=== PATIENT | female | born 1965 | race Caucasian/White ===

== ENCOUNTER 2023-05-13 18:08 | Emergency (ER) | payer BC ==
[~2023-05-13] VITALS: Ht 170.2 cm; Wt 104.3 kg
[2023-05-13] MEDS ORDERED: ONDANSETRON 4 MG/2 ML VIAL ONE ×2 (18:36→21:14)
[2023-05-13] MEDS ORDERED: HYDROMORPHONE 1 MG/1 ML DISP.SYRIN ONE ×2 (18:37→21:37)
[2023-05-13] MEDS: ONDANSETRON 4 MG/2 ML VIAL IV ONE ×2 (18:42→21:16)
[2023-05-13 18:45] LABS: WHITE BLOOD COUNT (AUTO) 10.2 K/uL (3.8-11.8)
[2023-05-13] MEDS: HYDROMORPHONE 1 MG/1 ML DISP.SYRIN IV ONE ×2 (18:45→21:42)
[2023-05-13 18:49] LABS: BASOPHILS # (AUTO) 0.1 K/UL (0.0-0.2); BASOPHILS % (AUTO) 0.8 % (0.0-2.0); DIFFERENTIAL COMMENT 1; EOSINOPHILS % (AUTO) 0.4 % (0.0-7.0); HEMOGLOBIN 14.5 g/dL (10.9-14.3); LYMPHOCYTES # (AUTO) 0.8 K/uL (0.8-4.8); LYMPHOCYTES % (AUTO) 8.3 % (20.5-51.5); MEAN CORPUSCULAR HEMOGLOBIN 31.8 uug (24.7-32.8); MEAN CORPUSCULAR HGB CONC 34 g/dL (32.3-35.6); MEAN CORPUSCULAR VOLUME 94.3 fL (75.5-95.3); MONOCYTES # (AUTO) 0.5 K/uL (0.1-1.30); NEUTROPHILS # (AUTO) 8.7 K/uL (1.8-8.9); NEUTROPHILS % (AUTO) 85.5 % (38.5-71.5); PLATELET COUNT (AUTO) 280 K/uL (179-408); RED BLOOD CELL COUNT(AUTO) 4.56 MIL/uL (3.63-4.92); RED CELL DISTRIBUTION WIDTH 12.8 % (12.3-17.7)
[2023-05-13 18:54] LABS: CALCIUM 9.4 mg/dL (8.5-10.1); CARBON DIOXIDE 22 mmol/L (21-32); CHLORIDE 102 mmol/L (98-107); CREATININE 0.7 mg/dL (0.6-1.3); GLUCOSE 269 mg/dL (74-106); SODIUM SERUM 139 mmol/L (136-145); UREA NITROGEN, BLOOD 12 mg/dL (7-18)
[2023-05-13 19:06] LABS: ALANINE AMINOTRANSFERASE 725 U/L (14-59); ALBUMIN 3.7 g/dL (3.4-5.0); ALKALINE PHOSPHATASE 182 U/L (50-136); ASPARTATE AMINOTRANSFERASE 417 U/L (15-37); BILIRUBIN,TOTAL 5.2 mg/dL (0.2-1.0); TOTAL PROTEIN, SERUM 7.1 g/dL (6.4-8.2)
[2023-05-13] MEDS ORDERED: IV NORMAL SALINE 250 ML IV ONE (19:32)
[2023-05-13] MEDS ORDERED: IOHEXOL 300MG/ML 100 ML INFUS..BTL ONE (19:32)
[2023-05-13] MEDS ORDERED: SWABABLE VALVE TRANSFER SET EA MC ONE (19:32)
[2023-05-13 19:52] LABS: LIPASE 4250 U/L (16-77)
[2023-05-13] MEDS ORDERED: PIPERACILLIN/TAZO 4.5 GM VIAL IV ONE (20:52)
[2023-05-13] MEDS: PIPERACILLIN SODIUM/TAZOBACTAM 4.5 G in IV DEXTROSE 5% 50 ML IV STA (21:04)
[2023-05-13] MEDS ORDERED: AMOX-430 PO (21:32)
[2023-05-13] MEDS ORDERED: METO-295 PO (21:32)
[2023-05-13 22:12] VITALS: BP 150/85; TEMP 98.5; O2SAT 99
== END 2023-05-13 22:12 | disposition left against medical advice (07) ==
LOC: ER 18:10
DX: K80.10 Calculus of gallbladder with chronic cholecystitis without obstruction (principal); K80.50 Calculus of bile duct without cholangitis or cholecystitis without obstruction; K85.90 Acute pancreatitis without necrosis or infection, unspecified; K76.0 Fatty (change of) liver, not elsewhere classified; R79.89 Other specified abnormal findings of blood chemistry; R10.13 Epigastric pain; E11.9 Type 2 diabetes mellitus without complications; Z79.899 Other long term (current) drug therapy; R11.2 Nausea with vomiting, unspecified
CPT/HCPCS: 99285; 74177; 96365; 76705; 71045; 96375; 80076; 80048; 83690; 85025; 84484 ×2; 36415; 96376; 83605; J2405 ×2; Q9967; J2543; J1170 ×2; A4606; A4663